=== PATIENT | male | born 1960 | race Caucasian/White ===

== ENCOUNTER 2025-02-11 12:49 | Outpatient (CLI) | payer MEDICARE | END 2025-02-11 12:50 | disposition home or self-care (01) | LOC: CSHULT 12:49 | PROVIDERS: ATTEND Nurse Practitioner Family | DX: R01.1 Cardiac murmur, unspecified (principal); I08.0 Rheumatic disorders of both mitral and aortic valves | CPT/HCPCS: 93306 ==